=== PATIENT | female | born 1965 | race Caucasian/White ===

== ENCOUNTER 2020-05-06 13:47 | Outpatient (CLI) | payer OTHER, SELFPAY ==
--- NOTE | ~2020-05-06 | MM_ITS ---
EXAMINATION: MM screening qian BI w anh HISTORY: Screening TECHNIQUE: Craniocaudal and mediolateral oblique 3-D tomosynthesis images were obtained and synthetic 2-D images were generated. CAD analysis was submitted and interpreted. COMPARISON: Comparison to multiple prior studies sequentially, with oldest reviewed study dated 01/09. BREAST PARENCHYMAL COMPOSITION: There are scattered areas of fibroglandular density. FINDINGS: There is no evidence of suspicious mass, calcification, or architectural distortion to sugg est malignancy in either breast. There has been no suspicious interval change. IMPRESSION: 1. No mammographic evidence of malignancy. 2. Recommend routine screening mammography in one year. BI-RADS Category 1: Negative Reviewed, dictated and finalized at location A.
== END 2020-05-06 13:48 | disposition home or self-care (01) ==
LOC: ANHIMG 13:51
PROVIDERS: PCP Family Medicine; Visit Provider Family Medicine
DX: Z12.31 Encounter for screening mammogram for malignant neoplasm of breast (principal)
CPT/HCPCS: 77063; 77067

== ENCOUNTER 2021-05-25 17:45 | Outpatient (CLI) | payer BC, SELFPAY ==
--- NOTE | ~2021-05-25 | MM_ITS ---
EXAMINATION: MM screening qian BI w anh HISTORY: Screening TECHNIQUE: Craniocaudal and mediolateral oblique 3-D tomosynthesis images were obtained and synthetic 2-D images were generated. CAD analysis was submitted and interpreted. COMPARISON: Comparison to multiple prior studies sequentially, with oldest reviewed study dated 10/15. BREAST PARENCHYMAL COMPOSITION: The breasts are almost entirely fatty. FINDINGS: There is no evidence of suspicious mass, calcification, or architectural distortion to sugg est malignancy in either breast. There has been no suspicious interval change. IMPRESSION: 1. No mammographic evidence of malignancy. 2. Recommend routine screening mammography in one year. BI-RADS Category 1: Negative Reviewed, dictated and finalized at location A.
== END 2021-05-25 17:46 | disposition home or self-care (01) ==
LOC: ANHIMG 17:48
PROVIDERS: PCP Family Medicine; Visit Provider Family Medicine
DX: Z12.31 Encounter for screening mammogram for malignant neoplasm of breast (principal)
CPT/HCPCS: 77063; 77067

== ENCOUNTER 2022-10-13 10:03 | Outpatient (CLI) | payer OTHER, SELFPAY ==
--- NOTE | ~2022-10-13 | MM_ITS ---
EXAMINATION: MM screening qian BI w anh HISTORY: Screening mammogram TECHNIQUE: Craniocaudal and mediolateral oblique 3-D tomosynthesis images were obtained and synthetic 2-D images were generated. CAD analysis was submitted and interpreted. COMPARISON: 05/25/2021, 05/06/2020, 11/03/2018 bilateral screening mammogram examinations BREAST PARENCHYMAL COMPOSITION: The breasts are almost entirely fatty. FINDINGS: There is no evidence of suspicious mass, calcification, or architectural distortion to sugg est malignancy in either breast. There has been no suspicious interval change. IMPRESSION: 1. No mammographic evidence of malignancy. 2. Recommend routine screening mammography in one year. 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
== END 2022-10-13 10:04 | disposition home or self-care (01) ==
PROVIDERS: PCP Family Medicine; Visit Provider Family Medicine
DX: Z12.31 Encounter for screening mammogram for malignant neoplasm of breast (principal)
CPT/HCPCS: 77063; 77067

== ENCOUNTER 2023-10-31 09:50 | Outpatient (CLI) | payer OTHER, SELFPAY ==
--- NOTE | ~2023-10-31 | MM_ITS ---
EXAMINATION: MM screening qian BI w anh HISTORY: Screening mammogram TECHNIQUE: Craniocaudal and mediolateral oblique 3-D tomosynthesis images were obtained and synthetic 2-D images were generated. CAD analysis was submitted and interpreted. COMPARISON: No prior mammogram is available for comparison at this institution. BREAST PARENCHYMAL COMPOSITION: The breasts are almost entirely fatty. FINDINGS: There is no evidence of suspicious mass, calcification, or architectural distortion to sugg est malignancy in either breast. There has been no suspicious interval change. IMPRESSION: 1. No mammographic evidence of malignancy. 2. Recommend routine screening mammography in one year. BI-RADS Category 1: Negative Reviewed, dictated and finalized at location A. 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
== END 2023-10-31 09:51 | disposition home or self-care (01) ==
PROVIDERS: PCP Family Medicine; Visit Provider Family Medicine
DX: Z12.31 Encounter for screening mammogram for malignant neoplasm of breast (principal)
CPT/HCPCS: 77063; 77067

== ENCOUNTER 2023-11-19 15:56 | Emergency (ER) | payer OTHER, SELFPAY ==
--- NOTE | ~2023-11-19 | XR_ITS ---
EXAMINATION: XR foot LT min 3V DATE: 11/19/2023 16:38 INDICATION: Trauma to the left first and second toes TECHNIQUE: Dorsoplantar, two oblique and lateral views of the left foot were obtained. COMPARISON: None. FINDINGS: Bone alignment is normal. No fracture. Mild osteoarthritis at the first metatarsophalangeal and sever al of the tarsal metatarsal and interphalangeal joints. Small plantar calcaneal spur. Soft tissues ar e unremarkable. IMPRESSION: 1. Mild degenerative skeletal changes in the left foot. No acute osseous abnormalities. Reviewed, dictated and finalized at location A. IMPRESSION: 1. Mild degenerative skeletal changes in the left foot. No acute osseous abnorm alities.
[2023-11-19 16:11] VITALS: BP 139/64; PULSE 97; RESP 16; TEMP 36.4; O2SAT 98
--- NOTE | 2023-11-19 17:26 | ED.GENADULT ---
HPI - General Adult General Chief complaint: Extremity Injury, Lower Stated complaint: injury to 2 toes on left foot Source: patient Mode of arrival: ambulatory Limitations: no limitations History of Present Illness HPI narrative: Pt presents for evaluation of left foot pain. She indicates she bumped her left foot against her crutches last week. She has bruising noted to the toes and rates her pain 7/10 in severity. Pain is worse with weightbearing and movement. She tried taking tylenol and ibuprofen 600mg for her symptoms. She has a burning sensation to her left foot. She has underlying peripheral neuropathy for which she takes gabapentin. She has been ambulating with crutches for quite some time following a fall a few years ago. She indicates that she sustained a right ankle fracture and several right foot fractures at that time. She has been going through therapy and is currently being worked up for MS. She states LP was negative but there were findings on an MRI which caused some concern. Related Data Home Medications Medication Instructions Recorded Confirmed gabapentin 600 mg tablet 600 mg PO TID 11/19/23 11/19/23 metformin 500 mg tablet,extended 1,000 mg PO BID 11/19/23 11/19/23 release 24 hr omeprazole 40 mg capsule,delayed 40 mg PO DAILY 11/19/23 11/19/23 release semaglutide 1 mg/dose (4 mg/3 mL) 1 mg subcut WEEKLY 11/19/23 11/19/23 subcutaneous pen injector (Ozempic) Allergies Allergy/AdvReac Type Severity Reaction Status Date / Time iodine Allergy Unknown Itching Verified 11/19/23 16:08 Contrast Media Allergy Unknown hives Uncoded 11/19/23 16:08 Review of Systems Review of Systems: CONSTITUTIONAL: Denies fever, chills, or sweats. EYES: Denies visual changes, redness, or discharge. ENT: Denies rhinorrhea, congestion, sore throat, or otalgia. CARDIOVASCULAR: Denies chest pain, palpitations, or edema. RESPIRATORY: Denies cough or dyspnea. GASTROINTESTINAL: Denies abdominal pain, nausea, vomiting, or diarrhea. GENITOURINARY: Denies dysuria or hematuria. SKIN: There is ecchymosis noted to the 2nd and 3rd digits of the left foot MUSCULOSKELETAL: Reports left foot pain and chronic right ankle/ foot pain. There is tenderness in 2nd-5th digits of the left foot. Able to wiggle all digits of the left foot. NEUROLOGIC: Reports burning sensation in the left foot as well as chronic numbness and tingling in the bilateral lower extremities. Denies headache PSYCHIATRIC: Denies anxiety or depression. [facility] Family History Family History (Updated 03/23/16 @ 23:19 by DOCTOR UNKNOWN) Mother Family history of diabetes mellitus in first degree relative Father Family history of lymphoma Other Diabetes mellitus Family history of malignant neoplasm Social History Social History Smoking status: Former smoker Alcohol intake: current Course Course Emergency Course: this is a 57-year-old female who presented for evaluation of left foot pain following an injury about a week ago. X-ray negative for fracture. Exam is consistent with contusion. Will increase ibuprofen from 600mg to 800mg. Advised on RICE therapy. She declined post-op shoe. Follow up with PCP and podiatry. Go to the ER for worsening symptoms. Pt in agreement with plan of care. Level of Care: Express Care Visit Vital Signs Vital signs: Vital Signs Temperature 36.4 C L 11/19/23 16:11 Pulse Rate 97 11/19/23 16:11 Respiratory Rate 16 11/19/23 16:11 Blood Pressure 139/64 11/19/23 16:11 Pulse Oximetry 98 11/19/23 16:11 Oxygen Delivery Room Air 11/19/23 16:11 Temperature 36.4 C L 11/19/23 16:11 Pulse Rate 97 11/19/23 16:11 Respiratory Rate 16 11/19/23 16:11 Blood Pressure 139/64 11/19/23 16:11 Pulse Oximetry 98 11/19/23 16:11 Oxygen Delivery Room Air 11/19/23 16:11 Medical Decision Making Vital Signs Vital Signs: Vital Signs Temperature 36.4 C L 11/19/23 16:11 Pulse R
== END 2023-11-19 17:30 | disposition home or self-care (01) ==
PROVIDERS: Emergency Provider Nurse Practitioner; PCP Family Medicine
DX: S90.122A Contusion of left lesser toe(s) without damage to nail, initial encounter (principal); W22.8XXA Striking against or struck by other objects, initial encounter; Z87.891 Personal history of nicotine dependence
CPT/HCPCS: 73630; 99213; G0463

== ENCOUNTER 2025-07-09 15:29 | Outpatient (CLI) | payer OTHER, SELFPAY ==
--- NOTE | ~2025-07-09 | XR_ITS ---
EXAM/PROCEDURE: XR lumbar spine 2-3V HISTORY: Radiculopathy, lumbar region COMPARISON: None available. TECHNIQUE: Lumbar spine 3 view FINDINGS: No acute or aggressive bony or soft tissue process seen. Diffuse degenerative changes involving disc spaces and posterior elements noted. Vascular calcification in the aorta noted. Fine bone and soft tissue detail obscured by large amount of overlying stool. IMPRESSION: Multilevel degenerative changes with no acute or aggressive bony or soft tissue process seen. Large amount of stool overlies the field of view. Reviewed, dictated and finalized at location A. 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
--- NOTE | ~2025-07-09 | XR_ITS ---
XR hip RT min 2V HISTORY: PAIN IN RIGHT HIP . COMPARISON: None FINDINGS: Two views of the right hip are provided for interpretation. There is no evidence of fracture or dislocation. The joint space is maintained. No soft tissue abnormalities are detected. IMPRESSION: Radiographic examination of the right hip demonstrates no acute fracture or dislocation. Reviewed, dictated and finalized at location S. 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
== END 2025-07-09 15:30 | disposition home or self-care (01) ==
LOC: MICIMG 15:31
PROVIDERS: PCP Family Medicine
DX: M47.816 Spondylosis without myelopathy or radiculopathy, lumbar region (principal); M25.551 Pain in right hip
CPT/HCPCS: 72100; 73502